=== PATIENT | female | born 2000 | race American Indian/Alaskan Native ===

== ENCOUNTER 2022-06-19 04:28 | Emergency (ER) | payer SELFPAY ==
[2022-06-19] MEDS ORDERED: Lactated Ringers 1,000 ML IV SCH (04:45)
== END 2022-06-19 09:14 | disposition home or self-care (01) ==
LOC: MW.ED 04:28
DX: F10.929 Alcohol use, unspecified with intoxication, unspecified (principal); Z72.0 Tobacco use
CPT/HCPCS: 70450; 70486; 99284; J7120